=== PATIENT | male | born 1990 ===

== ENCOUNTER 2019-02-24 06:08 | Day surgery (SDC) | payer OTHER ==
[~2019-02-24 06:08] MED LIST: TRAMADOL HCL50 MG PO
[2019-02-24] MEDS ORDERED: ALEVE220 M1 PO (15:16)
[2019-02-24] MEDS ORDERED: CEFADROXIL500 MG PO (15:16)
[2019-02-24] MEDS ORDERED: PERCOCET 5-3251 EACH PO (15:16)
== END 2019-02-24 18:40 | disposition home or self-care (01) ==
LOC: CIR.AMB 06:08
DX: S43.122A Dislocation of left acromioclavicular joint, 100%-200% displacement, initial encounter (principal)